=== PATIENT | male | born 1960 | race Caucasian/White ===

== ENCOUNTER 2018-02-18 06:08 | Inpatient (IN) | payer BC ==
[~2018-02-18 06:08] MED LIST: CEFAZOLIN 2 GM/50 ML (PMX) 50 ML IVPB
[2018-02-18] MEDS ORDERED: PROPOFOL 20 ML (06:17)
[2018-02-18] MEDS ORDERED: FENTAnyl 50 MCG/ML VIAL ×2 (06:17→11:29)
[2018-02-18] MEDS ORDERED: ROCURONIUM 50 MG INJ (06:17)
[2018-02-18] MEDS ORDERED: LIDOCAINE 2% (SDV) 5 ML INJ (06:17)
[2018-02-18] MEDS ORDERED: GLYCOPYRROLATE 0.4 MG INJ (06:17)
[2018-02-18] MEDS ORDERED: NEOSTIGMINE 3 MG/3 ML SYRINGE (06:17)
[2018-02-18] MEDS ORDERED: MIDAZOLAM 1 MG/ML 2 ML INJ (06:18)
[2018-02-18] MEDS ORDERED: DEXAMETHASONE 4 MG/ML 5 ML INJ (06:18)
[2018-02-18] MEDS ORDERED: ONDANSETRON 4 MG INJ (06:18)
[2018-02-18] MEDS ORDERED: SUCCINYLCHOLINE CHLORIDE 100 MG/5 ML SYG IV (06:31)
[2018-02-18] MEDS ORDERED: CEFAZOLIN 1 GM INJ (07:00)
[2018-02-18] MEDS: LACTATED RINGER'S 1,000 ML IV (07:00)
[2018-02-18] MEDS ORDERED: SEVOFLURANE 15 MIN (07:00)
[2018-02-18] MEDS: THROMBIN 5000 UNIT VIAL ×2 (08:53→08:54)
[2018-02-18] MEDS: LIDOCAINE 1%/EPI 30 ML INJ (08:55)
[2018-02-18] MEDS: GELATIN SIZE 100 SPONGE (08:55)
[2018-02-18] MEDS: POLYMYXIN/BACITRACIN 1L IRRIG (08:56)
[2018-02-18] MEDS ORDERED: SUGAMMADEX SODIUM 200 MG/2 ML VIAL IV (09:19)
[2018-02-18] MEDS ORDERED: LIDOCAINE 4% CR (10:31)
[2018-02-18] MEDS ORDERED: FLUMAZENIL 0.5 MG INJ (13:46)
[2018-02-18] MEDS ORDERED: DIAZEPAM 5 MG TAB PO (14:00)
[2018-02-18] MEDS ORDERED: ACETAMINOPHEN 325 MG TAB PO (14:00)
[2018-02-18] MEDS ORDERED: HYDROCODONE/APAP (5/325) TAB PO ×2 (14:00)
[2018-02-18] MEDS ORDERED: NACL 0.9% 3 ML SYG IV (14:00)
[2018-02-18] MEDS ORDERED: NALOXONE (0.4 MG/ML) INJ IV (14:00)
[2018-02-18] MEDS ORDERED: CEPASTAT LOZENGE MT (14:00)
[2018-02-18] MEDS ORDERED: AL HYDROX/MG HYDROX/SIMETH 30 ML CUP PO (14:00)
[2018-02-18] MEDS ORDERED: ZOLPIDEM 5 MG TAB PO (14:00)
[2018-02-18] MEDS ORDERED: BETHANECHOL 25 MG TAB PO (14:00)
[2018-02-18] MEDS: hydrALAzine 20 MG INJ IV (14:26)
[2018-02-18] MEDS: FENTAnyl 50 MCG/ML VIAL IV ×2 (14:26→14:36)
[2018-02-18] MEDS: MEPERIDINE 25 MG INJ IV (14:27)
[2018-02-18] MEDS: DIPHENHYDRAMINE 50 MG INJ IV (14:27)
[2018-02-18] MEDS ORDERED: TRIMETHOBENZAMIDE 100 MG/ML VIAL IM (14:30)
[2018-02-18] MEDS ORDERED: FENTAnyl 50 MCG/ML VIAL IV ×2 (14:30)
[2018-02-18] MEDS ORDERED: METOCLOPRAMIDE 10 MG INJ IV (14:30)
[2018-02-18] MEDS ORDERED: LEVALBUTEROL (NEB) 0.63 MG/3 ML AMP HHN (14:30)
[2018-02-18] MEDS ORDERED: HYDROmorphONE 1 MG/5 ML IV SYRINGE IV ×3 (14:30)
[2018-02-18] MEDS ORDERED: ALBUTEROL 0.083% (NEB) 2.5 MG/3 ML AMP HHN (14:30)
[2018-02-18] MEDS ORDERED: LABETALOL HCL 20MG INJ IV (14:30)
[2018-02-18] MEDS ORDERED: EPHEDrine SULFATE 50 MG/5 ML SYG IV (14:30)
[2018-02-18] MEDS ORDERED: ALBUMIN HUMAN 5% 250 ML IV (14:30)
[2018-02-18] MEDS ORDERED: morphine (1 MG/ML) 10ML SYRINGE IV ×3 (14:30)
[2018-02-18] MEDS ORDERED: MIDAZOLAM 1 MG/ML 2 ML INJ IV (14:30)
[2018-02-18] MEDS ORDERED: HALOPERIDOL 5 MG INJ IV (14:30)
[2018-02-18] MEDS ORDERED: ONDANSETRON 4 MG INJ IV (14:30)
[2018-02-18] MEDS: morphine 1 MG/ML 30 ML (PCA) IV (14:32)
[2018-02-18] MEDS: ONDANSETRON 4 MG INJ IV (14:42)
[2018-02-18] MEDS ORDERED: ACETAMINOPHEN 1000MG/100ML IV 100 ML IVPB (16:00)
[2018-02-18] MEDS: ACETAMINOPHEN 500 MG TAB PO ×2 (16:54→22:12)
[2018-02-18] MEDS: CEFAZOLIN 1 GM/50 ML (PMX) 50 ML IVPB ×2 (17:52→23:57)
[2018-02-19] MEDS: morphine 1 MG/ML 30 ML (PCA) IV ×2 (02:59→19:34)
[2018-02-19] MEDS: ACETAMINOPHEN 500 MG TAB PO ×2 (04:00→09:39)
[2018-02-19] MEDS: LACTATED RINGER'S 1,000 ML IV (06:20)
[2018-02-19] MEDS: CEFAZOLIN 1 GM/50 ML (PMX) 50 ML IVPB ×2 (06:20→12:08)
[2018-02-19 07:50] LABS: HEMATOCRIT 33.7 % (42.0-52.0); HEMOGLOBIN 11.1 g/dl (14.0-18.0)
[2018-02-19 08:14] LABS: ANION GAP 7 (5-13); BLOOD UREA NITROGEN 12 mg/dl (7-20); CALCIUM 8.8 mg/dl (8.4-10.2); CARBON DIOXIDE 34 mmol/L (21-31); CHLORIDE 99 mmol/L (97-110); CREATININE 0.91 mg/dl (0.61-1.24); Estimated GFR > 60 mL/min (>60); GLUCOSE 96 mg/dl (70-220); POTASSIUM 4.3 mmol/L (3.5-5.1); SODIUM 140 mmol/L (135-144)
[2018-02-19] MEDS: FERROUS SULFATE (EC) 325 MG TAB PO ×3 (09:39→21:03)
[2018-02-19] MEDS: DOCUSATE SODIUM 100 MG CAP PO ×2 (09:39→21:03)
[2018-02-19] MEDS: ACETAMINOPHEN 1000MG/100ML IV 100 ML IVPB ×3 (11:41→21:51)
[2018-02-19] MEDS ORDERED: traZODone 50 MG TAB PO (19:30)
[2018-02-20] MEDS: ACETAMINOPHEN 1000MG/100ML IV 100 ML IVPB (04:21)
[2018-02-20] MEDS: DOCUSATE SODIUM 100 MG CAP PO ×2 (08:15→19:43)
[2018-02-20] MEDS: PANTOPRAZOLE 40 MG INJ IV ×2 (08:15→17:56)
[2018-02-20] MEDS: FERROUS SULFATE (EC) 325 MG TAB PO ×3 (08:15→19:43)
[2018-02-20] MEDS: DEXAMETHASONE 4 MG/ML 1 ML INJ IV ×3 (08:15→19:43)
[2018-02-20] MEDS: DIPHENHYDRAMINE 50 MG INJ IV (14:51)
[2018-02-20] MEDS: DEXTROSE 5%-0.9% NACL 1,000 ML IV (14:54)
[2018-02-20] MEDS: oxyCODONE 5 MG TAB PO (19:43)
[2018-02-21] MEDS: DEXAMETHASONE 4 MG/ML 1 ML INJ IV ×2 (01:43→08:38)
[2018-02-21] MEDS: BISACODYL 10 MG SUPP PR ×3 (01:43→10:13)
[2018-02-21] MEDS: oxyCODONE 5 MG TAB PO ×3 (01:44→20:06)
[2018-02-21] MEDS: PANTOPRAZOLE 40 MG INJ IV ×2 (04:54→17:47)
[2018-02-21 06:10] LABS: ADD MAN DIFF? NO
[2018-02-21 06:28] LABS: BASOPHILS % 0.1 % (0.0-2.0); HEMATOCRIT 32.9 % (42.0-52.0); HEMOGLOBIN 11.1 g/dl (14.0-18.0); LYMPHOCYTES # 0.7 10^3/ul (0.8-2.9); LYMPHOCYTES % 7.1 % (15.0-51.0); MEAN CORPUSCULAR HEMOGLOBIN 29.8 pg (29.0-33.0); MEAN CORPUSCULAR HGB CONC 33.7 g/dl (32.0-37.0); MEAN CORPUSCULAR VOLUME 88.4 fl (82.0-101.0); MEAN PLATELET VOLUME 10.1 fl (7.4-10.4); MONOCYTE # 0.5 10^3/ul (0.3-0.9); MONOCYTES % 5.5 % (0.0-11.0); NEUTROPHILS % 87.1 % (39.0-77.0); PLATELET COUNT 221 10^3/UL (140-415); RED BLOOD COUNT 3.72 10^6/ul (4.70-6.10); RED CELL DISTRIBUTION WIDTH 12.7 % (11.5-14.5)
[2018-02-21 06:28] LABS: WHITE BLOOD COUNT 9.2 10^3/ul (4.8-10.8)
[2018-02-21 06:54] LABS: ANION GAP 6 (5-13); BLOOD UREA NITROGEN 10 mg/dl (7-20); CALCIUM 9.2 mg/dl (8.4-10.2); CARBON DIOXIDE 29 mmol/L (21-31); CHLORIDE 103 mmol/L (97-110); CREATININE 0.62 mg/dl (0.61-1.24); Estimated GFR > 60 mL/min (>60); GLUCOSE 160 mg/dl (70-220); POTASSIUM 4.4 mmol/L (3.5-5.1); SODIUM 138 mmol/L (135-144)
[2018-02-21] MEDS: FERROUS SULFATE (EC) 325 MG TAB PO ×3 (08:38→20:02)
[2018-02-21] MEDS: DOCUSATE SODIUM 100 MG CAP PO ×2 (08:38→20:02)
[2018-02-21] MEDS: DEXTROSE 5%-0.9% NACL 1,000 ML IV (08:44)
[2018-02-21] MEDS: DIPHENHYDRAMINE 50 MG CAP PO (08:57)
[2018-02-21] MEDS: morphine SULFATE/PF (2 MG/2 ML) SYG IV (17:47)
[2018-02-22] MEDS: BISACODYL 10 MG SUPP PR (00:34)
[2018-02-22] MEDS: morphine SULFATE/PF (2 MG/2 ML) SYG IV ×3 (03:31→17:48)
[2018-02-22] MEDS: PANTOPRAZOLE 40 MG INJ IV ×2 (05:35→17:42)
[2018-02-22] MEDS: DOCUSATE SODIUM 100 MG CAP PO (08:22)
[2018-02-22] MEDS: FERROUS SULFATE (EC) 325 MG TAB PO ×2 (08:22→13:07)
[2018-02-22] MEDS: oxyCODONE 5 MG TAB PO (13:46)
== END 2018-02-22 18:54 | disposition home health service (06) | DRG 473 ==
LOC: REC 06:08 → TEL 15:39
PROC: 0RG20A0 Fusion of 2 or more Cervical Vertebral Joints with Interbody Fusion Device, Anterior Approach, Anterior Column, Open Approach (ICD-10-PCS; principal; 2018-02-18 07:27)
PROC: 0RB30ZZ Excision of Cervical Vertebral Disc, Open Approach (ICD-10-PCS; 2018-02-18 07:27)
PROC: 4A11X4G Monitoring of Peripheral Nervous Electrical Activity, Intraoperative, External Approach (ICD-10-PCS; 2018-02-18 07:27)
DX: M47.12 Other spondylosis with myelopathy, cervical region (principal); M47.22 Other spondylosis with radiculopathy, cervical region; M48.02 Spinal stenosis, cervical region; E78.00 Pure hypercholesterolemia, unspecified; D64.9 Anemia, unspecified
CPT/HCPCS: 72040; 80048; 85014; 85018; 85025; 86900; 86901; 87086; 97116; 97161; 97530